=== PATIENT | female | born 1975 | race Caucasian/White ===

== ENCOUNTER → 2018-11-14 | Outpatient (CLI) | payer MEDICAID, OTHER ==
--- NOTE | 2018-11-14 16:58 | RAD ---
2 view study of the left knee and AP standing view study of both knees. INDICATIONS: Left knee pain. Left knee: Mild joint space narrowing and spurring of the medial and to a lesser extent the lateral tibiofemoral joint compartment of the left knee is seen. No acute fracture or dislocation or lytic process is seen. There is a small left knee joint effusion. Minimal degenerative spurring of the patella is seen. IMPRESSION: Mild tricompartmental primary degenerative osteoarthritis of the left knee most prominently involving the medial tibiofemoral joint compartment. Right knee: There is mild degenerative joint space narrowing without spurring of the medial and lateral tibiofemoral joint compartments. No acute fracture or lytic process is evident. IMPRESSION: Mild degenerative joint space narrowing of the medial and lateral tibiofemoral joint compartments of the right knee. Electronically signed by: Varinder Silva MD (11/14/2018 4:55 PM) [id number]
== END | disposition home or self-care (01) ==
LOC: RAD 14:11
PROVIDERS: ATTEND Orthopaedic Surgery
DX: M17.0 Bilateral primary osteoarthritis of knee (principal); M25.462 Effusion, left knee
CPT/HCPCS: 73560; 73565